=== PATIENT | female | born 1970 | race Caucasian/White ===

== ENCOUNTER 2020-12-08 12:04 | Emergency (ER) | payer OTHER ==
[2020-12-08 13:04] LABS: BASOPHIL 0.5 % (0-2); EOSINOPHIL 1.5 % (0-5); HCT 43.1 % (37.0-47.0); LYMPHOCYTE 21.5 % (15-48); MCH 30.7 pg (25.0-31.0); MCHC 32.5 g/dL (32.0-36.0); MCV 94.5 fL (78.0-100.0); MONOCYTE 6.5 % (0-12); MPV 12.6 fL (6.0-9.5); NEUTROPHIL 69.7 % (41-80); NRBC 0; PLT 146 K/uL (150-400); RBC 4.56 M/uL (4.20-5.40); RDW 13.3 % (11.5-14.0); WBC 8.7 K/uL (4.0-10.5)
[2020-12-08 13:18] LABS: ALBUMIN 3.7 g/dL (3.4-5.0); BILIRUBIN - TOTAL 0.6 mg/dL (0.2-1.0); BUN/CREAT RATIO (CALC) 30.2 RATIO; CREATININE 0.86 mg/dL (0.51-0.95); GLOBULIN (CALCULATION) 3.8 g/dL; POTASSIUM 4.6 mmol/L (3.5-5.1); TOTAL PROTEIN 7.5 g/dL (6.4-8.2)
== END 2020-12-08 17:51 | disposition other institution (70) ==
LOC: FER 12:04
PROVIDERS: Emergency Medicine
DX: I21.4 Non-ST elevation (NSTEMI) myocardial infarction (principal); I10 Essential (primary) hypertension; Z86.16 Personal history of COVID-19; Z87.891 Personal history of nicotine dependence; Z88.1 Allergy status to other antibiotic agents; Z79.899 Other long term (current) drug therapy
CPT/HCPCS: 36415; 71045; 80053; 84484; 85025; 85730; 93005; J1644